=== PATIENT | female | born 1935 | race Caucasian/White ===

== ENCOUNTER 2019-08-20 17:38 | Inpatient (IN) | payer MEDICARE, OTHER ==
[2019-08-20] VITALS (7 sets, daily range): BP systolic 141–166; BP diastolic 58–90
[~2019-08-20] VITALS: Ht 149.9 cm; Wt 66.4 kg
[~2019-08-20 17:38] MED LIST: AMLO10TA8 PO; ATOR20TA58 PO; MULT1TAB52 PO; OMEP40CA45 PO; QUIN5TAB13 PO; SERT100T8 PO
[2019-08-20] MEDS ORDERED: DIPHTH,PERTUSS(ACELL),TET TOX 0.5 ML DISP.SYRIN. VAX IM ONE (18:30)
[2019-08-20] MEDS ORDERED: traMADol 50 MG TABLET PO ONE (18:30)
--- NOTE | 2019-08-20 18:39 | PHYS DOC ---
Past Medical History Past Medical History: Hypertension (SIOMARA DASILVA APRN) Past Surgical History: Hysterectomy, Tonsillectomy, Other Additional Past Surgical Histo: BOWEL SURGERY (SIOMARA DASILVA APRN) Alcohol Use: None Drug Use: None (SIOMARA DASILVA APRN) Attending Signature I have participated in the care of this patient and I have reviewed and agree with all pertinent clinical information above including history, exam, and recommendations. (MAYRA SCOTT MD) Adult General Chief Complaint Chief Complaint: MECHANICAL FALL HPI HPI Patient is a 83 year old female who presents with at 1700 lost her balance in her room falling and hitting the right back of head on the head board of her bed. Denies loc or blood thinners. Rates her head pain at a 5/10. (SIOMARA DASILVA APRN) Review of Systems Review of Systems Musculoskeletal: Right back side of head pain. Denies back pain or joint pain [] Integument: Right back of head small puncture wound. Denies rash or skin lesions [] Neurologic: headache, denies focal weakness or sensory changes [] All other systems were reviewed and found to be within normal limits, except as documented in this note. (SIOMARA DASILVA APRN) Current Medications Current Medications Current Medications Medications (Trade) Dose Ordered Sig/Terrence Start Time Stop Time Status Last Admin Dose Admin Diphtheria/ Tetanus/Acell Pertussis (Boostrix) 0.5 ml ONCE ONCE 08/20/19 18:30 08/20/19 18:31 DC 08/20/19 19:27 0.5 ML Fentanyl Citrate (Fentanyl 2ml Vial) 50 mcg PRN Q1HR PRN 08/20/19 19:45 08/21/19 19:44 08/21/19 12:44 50 MCG Labetalol HCl (Normodyne Iv Push) 10 mg 1X ONCE 08/20/19 19:45 08/20/19 19:53 DC 08/20/19 20:02 10 MG Ondansetron HCl (Zofran) 4 mg PRN Q8HRS PRN 08/20/19 19:45 08/21/19 19:44 08/21/19 12:44 4 MG Sodium Chloride 1,000 ml @ 100 mls/hr Q10H 08/20/19 19:38 08/21/19 19:37 08/21/19 05:38 100 MLS/HR Tramadol HCl (Ultram) 50 mg 1X ONCE 08/20/19 18:30 08/20/19 18:31 DC 08/20/19 19:21 50 MG (MAYRA SCOTT MD) Allergies Allergies Allergies Coded Allergies Type Severity Reaction Last Updated Verified acetaminophen Allergy Severe "EYES & NOSE SWELL UP" 02/23/16 Yes bacitracin Allergy Intermediate Redness/ rash/ hives 02/23/16 Yes neomycin Allergy Intermediate Redness/ rash/ hives 02/23/16 Yes polymyxin B Allergy Intermediate Redness/ rash/ hives 02/23/16 Yes (MAYRA SCOTT MD) Physical Exam Physical Exam Constitutional: Well developed, well nourished, no acute distress, non-toxic appearance. [] HENT: Normocephalic, atraumatic, bilateral external ears normal, oropharynx moist, no oral exudates, nose normal. Tenderness and 1+ swelling to right back of head over puncture site. [] Eyes: PERRLA, EOMI, conjunctiva normal, no discharge. [] Neck: Normal range of motion, no tenderness, supple, no stridor. [] Cardiovascular:Heart rate regular rhythm, no murmur [] Lungs & Thorax: Bilateral breath sounds clear to auscultation [] Abdomen: Bowel sounds normal, soft, no tenderness, no masses, no pulsatile masses. [] Skin: Right sided back of head puncture wound. Warm, dry, no erythema, no rash. [] Back: No tenderness, no CVA tenderness. [] Extremities: No tenderness, no cyanosis, no clubbing, ROM intact, no edema. [] Neurologic: Alert and oriented X 3, normal motor function, normal sensory function, no focal deficits noted. [] Psychologic: Affect normal, judgement normal, mood normal. [] (SIOMARA DASILVA APRN) Current Patient Data Vital Signs Vital Signs Date Time Temp Pulse Resp B/P (MAP) Pulse Ox O2 Delivery O2 Flow Rate FiO2 08/20/19 20:02 66 165/70 08/20/19 19:37 18 99 08/20/19 19:21 Room Air 08/20/19 17:38 99.0 99.0 (MAYRA SCOTT MD) Lab Values Laboratory Tests Test 08/20/19 19:15 White Blood Count 4.2 x10^3/uL (4.0-11.0) Red Blood Count 4.51 x10^6/uL (3.50-5.40) Hemoglobin 13.7 g/dL (12.0-15.5) Hematocrit 40.6 % (36.0-47.0) Mean Corpuscular Volume 90 fL (79-100) Mean Corpuscular Hemoglobin 30 pg (25-35) Mean Corpuscular Hemoglobin Concent 34 g/dL (31-37) Red Cell Distribution Width 14.1 % (11.5-14.5) Platelet Count 98 x10^3/uL (140-400) L Neutrophils (%) (Auto) 78 % (31-73) H Lymphocytes (%) (Auto) 14 % (24-48) L Monocytes (%) (Auto) 6 % (0-9) Eosinophils (%) (Auto) 1 % (0-3) Basophils (%) (Auto) 1 % (0-3) Neutrophils # (Auto) 3.3 x10^3/uL (1.8-7.7) Lymphocytes # (Auto) 0.6 x10^3/uL (1.0-4.8) L Monocytes # (Auto) 0.2 x10^3/uL (0.0-1.1) Eosinophils # (Auto) 0.1 x10^3/uL (0.0-0.7) Basophils # (Auto) 0.0 x10^3/uL (0.0-0.2) Prothrombin Time 13.0 SEC (11.7-14.0) Prothrombin Time INR 1.0 (0.8-1.1) Sodium Level 144 mmol/L (136-145) Potassium Level 4.1 mmol/L (3.5-5.1) Chloride Level 107 mmol/L (98-107) Carbon Dioxide Level 29 mmol/L (21-32) Anion Gap 8 (6-14) Blood Urea Nitrogen 20 mg/dL (7-20) Creatinine 0.9 mg/dL (0.6-1.0) Estimated GFR (Cockcroft-Gault) 59.9 BUN/Creatinine Ratio 22 (6-20) H Glucose Level 111 mg/dL (70-99) H Calcium Level 9.5 mg/dL (8.5-10.1) Total Bilirubin 0.7 mg/dL (0.2-1.0) Aspartate Amino Transferase (AST) 23 U/L (15-37) Alanine Aminotransferase (ALT) 17 U/L (14-59) Alkaline Phosphatase 92 U/L (46-116) Total Protein 6.8 g/dL (6.4-8.2) Albumin 3.8 g/dL (3.4-5.0) Albumin/Globulin Ratio 1.3 (1.0-1.7) Laboratory Tests 08/20/19 19:15 Laboratory Tests 08/20/19 19:15 (MAYRA SCOTT MD) EKG EKG [] (SIOMARA DASILVA APRN) Radiology/Procedures Radiology/Procedures [] (SIOMARA DASILVA APRN) Impressions: [facility] [address] [place] [address] IMAGING REPORT Signed PATIENT: ASPEN MONTANO IACCOUNT: [id number] : 1935 LOCATION: ER AGE: 83 SEX: F EXAM STATUS: REG ER ORD. PHYSICIAN: SIOMARA DASILVA APRN REASON: fall, laceration PROCEDURE: CT HEAD AND CERVICAL SPINE WO Exam: CT head and cervical spine INDICATION: Fall TECHNIQUE: Sequential axial images through the head and cervical spine were obtained without the administration of IV contrast. Comparisons: None FINDINGS: Head: Subdural hematoma predominantly along the falx measuring approximately 8 mm in thickness and is greatest dimension. The hematoma also extends along the falx on the left. There is no significant midline shift or sulcal effacement. No acute vascular territory infarction is identified. Holloway-white distinction is preserved. The ventricular system is within normal limits without compression hydrocephalus. The basal cisterns are well maintained. There is extracranial soft tissue contusion in the scalp overlying the right parietal region. The visualized portions of the paranasal sinuses and mastoid air cells are well-pneumatized. No acute fractures. Cervical spine: Vertebral body heights are well-maintained. There is a grade 1 anterolisthesis of C7 on T1 and T1 and T2. Fracture to the cervical spine is not identified. There is multilevel degenerative disc disease noted throughout the cervical spine. Mild bilateral facet arthropathy is also noted in the cervical spine. Visualized paraspinal soft tissues are unremarkable. IMPRESSION: 1. Subdural hematoma along the falx extending to the left tentorium which measures 8 mm at its greatest thickness. No significant mass effect. No hydrocephalus. 2. Extracranial soft tissue contusion overlying the right parietal region. 3. Negative CT C-spine for acute traumatic injury. Exposure: One or more of the following in the visualized dose reduction techniques were utilized for this examination: 1. Automated exposure control 2. Adjustment of the MA and/or KV according to patient size Use of iterative of reconstructive technique FOR INTERNAL CODING PURPOSES Critical result: Findings discussed with Dr. Scott at 08/20/2019 6:50 PM. RESULT CODE: (C) Electronically signed by: Pau Rodriguez MD (08/20/2019 6:57 PM) [facility] DICTATED and SIGNED BY: PAU RODRIGUEZ MD DATE: 08/20/19 185 (SIOMARA DASILVA APRN) Course & Med Decision Making Course & Med Decision Making Denies loc, nausea, vomiting, dizziness, abdominal pain, chest pain, soa, visual changes, numbness or tingling, back pain, neck pain. Patient moves extremities equally and without pain. Patient moves at all joints with intact ROM and no pain. No bruising, deformity, abrasions to the patients body or extremties. Patient has blood to the right back side of head. It look like there is a small puncture wound to the right back of the head but it looks to have closed up. No bleeding at this time. Tenderness over the injured area to the scalp with 1+ swelling. Alert and oriented. but states her head hurts at a 5/10. Patient speaks in full clear sentences. PERRLA. Skin pink warm and dry. Patient states she is not dizzy but feels "foggy headed". Abdomen is soft, no bruising and no ntender. Lungs are clear to auscultation. No tenderness to cervical, thoracic, lumbar spine. No pain to chest or ribs with palpation and no bruising or deformity. Patient has full ROM of her neck. Follows all commands. No hip or pelvis pain bilaterally. Pedal and radial pulses present. No extremity swelling. Ct head shows: IMPRESSION: 1. Subdural hematoma along the falx extending to the left tentorium which measures 8 mm at its greatest thickness. No significant mass effect. No hydrocephalus. 2. Extracranial soft tissue contusion overlying the right parietal region. 3. Negative CT C-spine for acute traumatic injury. 191: I have spoken to Dr Bauer and she states to make sure the blood pressure is lowered, call Dr Drew, and the patient can be admitted to ICU. Patients blood pressure is currently 162/70. 1925: I have spoken to Dr Drew [employer] and she states the patient can be admitted to the ICU and they will scan her in the morning. 1932: I have spoken to Dr Vargas for admission. (SIOMARA DASILVA APRN) Dragon Disclaimer Dragon Disclaimer This electronic medical record was generated, in whole or in part, using a voice recognition dictation system. (SIOMARA DASILVA APRN) Departure Departure Impression: Primary Impression: Subdural hematoma Disposition: 09 ADMITTED INPATIENT Admitting Physician: Pastora Vargas (SIOMARA DASILVA APRN) Condition: STABLE Referrals: PASTORA VARGAS MD (PCP) SIOMARA DASILVA APRN Aug 20, 2019 18:39 MAYRA SCOTT MD Aug 21, 2019 18:15
--- NOTE | 2019-08-20 19:00 | RAD ---
Exam: CT head and cervical spine INDICATION: Fall TECHNIQUE: Sequential axial images through the head and cervical spine were obtained without the administration of IV contrast. Comparisons: None FINDINGS: Head: Subdural hematoma predominantly along the falx measuring approximately 8 mm in thickness and is greatest dimension. The hematoma also extends along the falx on the left. There is no significant midline shift or sulcal effacement. No acute vascular territory infarction is identified. Holloway-white distinction is preserved. The ventricular system is within normal limits without compression hydrocephalus. The basal cisterns are well maintained. There is extracranial soft tissue contusion in the scalp overlying the right parietal region. The visualized portions of the paranasal sinuses and mastoid air cells are well-pneumatized. No acute fractures. Cervical spine: Vertebral body heights are well-maintained. There is a grade 1 anterolisthesis of C7 on T1 and T1 and T2. Fracture to the cervical spine is not identified. There is multilevel degenerative disc disease noted throughout the cervical spine. Mild bilateral facet arthropathy is also noted in the cervical spine. Visualized paraspinal soft tissues are unremarkable. IMPRESSION: 1. Subdural hematoma along the falx extending to the left tentorium which measures 8 mm at its greatest thickness. No significant mass effect. No hydrocephalus. 2. Extracranial soft tissue contusion overlying the right parietal region. 3. Negative CT C-spine for acute traumatic injury. Exposure: One or more of the following in the visualized dose reduction techniques were utilized for this examination: 1. Automated exposure control 2. Adjustment of the MA and/or KV according to patient size Use of iterative of reconstructive technique FOR INTERNAL CODING PURPOSES Critical result: Findings discussed with Dr. King at 08/20/2019 6:50 PM. RESULT CODE: (C) Electronically signed by: Pau Alan MD (08/20/2019 6:57 PM) [facility]
[2019-08-20 19:25] LABS: BASO % 1 % (0-3); EOS # 0.1 x10^3/uL (0.0-0.7); EOS % 1 % (0-3); HEMATOCRIT 40.6 % (36.0-47.0); HEMOGLOBIN 13.7 g/dL (12.0-15.5); LYMPH # 0.6 x10^3/uL (1.0-4.8); LYMPH % 14 % (24-48); MEAN CORPUSCULAR HEMOGLOBIN 30 pg (25-35); MEAN CORPUSCULAR HGB CONC 34 g/dL (31-37); MEAN CORPUSCULAR VOLUME 90 fL (79-100); MONO # 0.2 x10^3/uL (0.0-1.1); MONO % 6 % (0-9); NEUT # 3.3 x10^3/uL (1.8-7.7); NEUT % 78 % (31-73); PLATELET COUNT 98 x10^3/uL (140-400); RED BLOOD COUNT 4.51 x10^6/uL (3.50-5.40); RED CELL DISTRIBUTION WIDTH 14.1 % (11.5-14.5); WHITE BLOOD COUNT 4.2 x10^3/uL (4.0-11.0)
[2019-08-20 19:35] LABS: CALCIUM 9.5 mg/dL (8.5-10.1); CREATININE 0.9 mg/dL (0.6-1.0); GFR 59.9; POTASSIUM 4.1 mmol/L (3.5-5.1)
[2019-08-20 19:41] LABS: ALBUMIN 3.8 g/dL (3.4-5.0); ALBUMIN/GLOBULIN RATIO 1.3 (1.0-1.7); TOTAL BILIRUBIN 0.7 mg/dL (0.2-1.0); TOTAL PROTEIN 6.8 g/dL (6.4-8.2)
[2019-08-20] MEDS ORDERED: LABETALOL 20 MG/4 ML DISP.SYRIN. IVP ONE (19:45)
[2019-08-20] MEDS: IV NORMAL SALINE 1000ML BAG 1,000 ML IV SCH (21:26)
[2019-08-20] MEDS: amLODIPine BESYLATE 10 MG TABLET PO SCH (23:41)
[2019-08-21] VITALS (15 sets, daily range): BP systolic 106–173; BP diastolic 33–79
[2019-08-21] MEDS: IV NORMAL SALINE 1000ML BAG 1,000 ML IV SCH ×2 (05:38→15:38)
[2019-08-21] MEDS: PANTOPRAZOLE 40 MG TABLET.DR. PO SCH (08:03)
[2019-08-21] MEDS: amLODIPine BESYLATE 10 MG TABLET PO SCH (08:03)
[2019-08-21] MEDS: SERTRALINE 50 MG TABLET. PO SCH (08:03)
[2019-08-21] MEDS: LISINOPRIL 5 MG TABLET. PO SCH (08:04)
[2019-08-21] MEDS: fentaNYL PF VIAL 100 MCG/2 ML VIAL IV PRN ×2 (08:15→12:44)
[2019-08-21] MEDS: ONDANSETRON PF 4 MG/2 ML VIAL. IV PRN ×2 (08:17→12:44)
[2019-08-21] MEDS ORDERED: amLODIPine BESYLATE 10 MG TABLET PO SCH (09:00)
--- NOTE | 2019-08-21 12:54 | CONS ---
DATE OF CONSULTATION: 08/21/2019 REASON FOR CONSULTATION: Subdural hematoma. HISTORY OF PRESENT ILLNESS: The patient is a pleasant 83-year-old woman, who yesterday suffered a fall. She said she lost her balance and fell and struck the back of her head in the right side on the headboard of her bed. She said she did not lose consciousness. She was brought to the Emergency Room for further evaluation. Abnormalities were seen on her CT scan, she was admitted. Today, she reports some mild head pain, but otherwise feels well. She said she would like to go home. PAST MEDICAL HISTORY: Include hypertension. PAST SURGICAL HISTORY: Hysterectomy, tonsillectomy, and bowel surgery. PERSONAL HISTORY: She does not use alcohol or take illicit drugs or smoke. REVIEW OF SYSTEMS: Review of systems of 12 points was performed and was negative other than as outlined above. MEDICATIONS: List was also reviewed and again was negative. She is not on any blood thinners. ALLERGIES: She reports eyes and nose swelling to ACETAMINOPHEN and also redness or rash to BACITRACIN, NEOMYCIN, and POLYMYXIN B. PHYSICAL EXAMINATION: GENERAL: She is supine in bed. She is alert, pleasant, cooperative, oriented x 3 with normal recent and remote memory, normal speech. NEUROLOGIC: Her pupils are equal with normal extraocular motor function. Facial motor and facial sensory examination was normal. Her lower cranial nerves were intact. On motor testing, her strength was 5/5 in upper and lower extremities bilaterally. On sensory exam, she was intact to light touch in the upper and lower extremities with hypoactive reflexes. There was full range of motion of upper and lower extremities bilaterally. HEENT: Normocephalic. There was tenderness on the posterior aspect of the scalp on the right side. I did not see any ecchymosis or evidence of blood. NECK: Supple. LABORATORY DATA: I reviewed two CT scans of the head. The initial one done last night and one this morning. There are two abnormalities. She has what appears to be a subdural hematoma, which extends along the falx superiorly and measures about 8 mm in greatest thickness. It is without significant mass effect. There is also blood layered on the left tentorium, again without mass effect. IMPRESSION: Subdural hematoma related to trauma. RECOMMENDATIONS: At this point, she can be fed. She will be transferred upstairs. From my standpoint, she can be discharged tomorrow and we can obtain scans as an outpatient to be sure that the hematoma has resolved. Thank you for asking me to participate in her care. SADIQ SOSA MD DR: BHAVNA/agustín JOB#: [id number] / [id number]
--- NOTE | 2019-08-21 13:10 | RAD ---
CT HEAD WO CONTRAST Date: 08/21/2019 9:38 AM Clinical Indication: Subdural hematoma Comparison: 08/20/2019. Technique: 5 mm axial tomographic images were obtained of the head without contrast. These were viewed on brain and bone windows. One or more of the following dose reduction techniques were utilized: Automated exposure control (AEC), Adjustment of mA and/or kV according to patient size, Use of iterative reconstruction technique such as ASiR, CT scan done according to ALARA and image gently/image wisely Findings: Stable left acute subdural blood products along the left side of the falx and extending along the left tentorium, measuring up to 8 mm in thickness. There is no significant mass effect. No midline shift. Mild generalized cerebral and cerebellar volume loss. Mild nonspecific periventricular hypoattenuation, most commonly seen with chronic small vessel ischemic disease. Calcified atherosclerosis of the bilateral cavernous and paraclinoid internal carotid arteries and intracranial vertebral arteries. The ventricles are normal in size, shape, and morphology. The morse-white matter junction is normal. The subarachnoid cisterns are patent. The visualized paranasal sinuses are normal. The visualized portions of the orbits and globes are normal. The mastoid air cells are clear. The experimental aircraft mechanic topogram shows no lytic lesion or fracture. Impression: Stable acute left parafalcine and tentorial subdural hematoma measuring up to 8 mm in thickness. No midline shift. Electronically signed by: Navin Brennan MD (08/21/2019 1:07 PM) [facility]
--- NOTE | 2019-08-21 14:32 | HP ---
ADMIT DATE: 08/20/2019 CHIEF COMPLAINT AND HISTORY OF PRESENT ILLNESS: This 83-year-old white female, patient of Dr. Pastora Robertson's fell on the day of admission, striking the back of her head. She states she hit the headboard of her bed. She denies any loss of consciousness with the same. She takes no blood thinners at home. She had head pain and a lot of bleeding, and presented to the Emergency Room where she was found to have a subdural hematoma and admitted for the same to the ICU. PAST MEDICAL HISTORY: Remarkable for hypertension. PAST SURGICAL HISTORY: She has had a prior hysterectomy, tonsillectomy, bowel surgery. MEDICATIONS: Brought with the patient, listed on the computer and have been addressed. ALLERGIES: SHE IS ALLERGIC TO ACETAMINOPHEN, BACITRACIN, NEOMYCIN AND POLYMYXIN B. SOCIAL HISTORY: Noncontributory. FAMILY HISTORY: Noncontributory. REVIEW OF SYSTEMS: Positive for the fall. There was no loss of consciousness. She does state that she has had balance problems for some time now and has had multiple recent falls. She describes these falls are usually when she takes her eyes off of what is going on and then she winds up on the floor often falling backwards. She denies any symptoms of vertebrobasilar insufficiency associated with all this. Otherwise, review of systems is negative. PHYSICAL EXAMINATION: GENERAL: She is a well-developed, well-nourished white female, lying in bed, in no acute distress. VITAL SIGNS: Stable. She is afebrile. HEAD, EYES, EARS, NOSE AND THROAT: Remarkable for some swelling on the right posterior scalp from the fall and a small puncture. NECK: Supple without adenopathy or thyromegaly. CHEST: Clear to auscultation and percussion. HEART: Regular rate and rhythm without S3, S4 or murmur. ABDOMEN: Soft, nontender, without hepatosplenomegaly or masses. EXTREMITIES: Without cyanosis, clubbing or edema. NEUROLOGIC: She is intact. LABORATORY DATA: Initial laboratory includes a CBC that is remarkable for a platelet count of 98,000 and CMP was essentially unremarkable and an INR that is 1. Imaging of her head does reveal left parafalcine and tentorial subdural hematoma up to 8 mm in thickness without midline shift. IMPRESSION: 1. Fall with history of multiple recent falls and decreased balance with diminished proprioception on today's exam with subdural hematoma. 2. Hypertension. 3. History of prior surgeries above. PLAN: The patient has been admitted. Neurosurgery and Neurology will be asked for opinions. PT and OT will be asked to evaluate for the balance issues and the patient will be monitored, managed and treated appropriately. ARMANDO SWARTZ MD DR: MASON/agustín JOB#: [id number] / [id number] PASTORA Torres MD
[2019-08-21] MEDS ORDERED: traMADol 50 MG TABLET PO PRN (15:30)
--- NOTE | 2019-08-21 15:50 | PDOC2 ---
NEUROLOGY CONSULT Date of Admission Date of Admission DATE: 08/21/19 TIME: 15:33 Reason for Consult Reason for Consult: IMPRESSION: SDH, left tentorium and left parafalxine. Right parietal and temporal head soft tissue injury. Fall Metabolic encephalopathy. Headaches. Hypertension. Near hypertensive urgency on 08/20/19, SBP 190 mmHg. HTN. HLD. RECOMMENDATIONS/PLAN: BP control. Pain control for headaches. Avoid antiplatelet agents. Treat medical diseases. repeat HCT w/o contrast if condition worse. Discussed with her daughter and showed HCT pictures to her in ICU on 08/21/19. HISTORY OF THE PRESENT ILLNESS: This is an 83-year-old female patient with above medical diseases had falls 2 times in a month recently. She had a fall on 08/20/19 in standing position stated as lost her balance and fell and struck the back of her head in the right side on the headboard of her bed. She said she did not lose consciousness. She was brought to the ER of [facility] for further evaluation. Her HCT showed above SDH. She complained headaches in her right side as soft tissue injury. No projectile vomiting. PAST MEDICAL HISTORY: Hypertension. PAST SURGICAL HISTORY: Hysterectomy, Tonsillectomy, BOWEL SURGERY ALLERGY: Eyes and nose swelling to ACETAMINOPHEN and also redness or rash to BACITRACIN, NEOMYCIN, and POLYMYXIN B. MEDICATIONS: Refer to [facility] HISTORY: Non contributory. SOCIAL HISTORY: Lives at home. Denies current smoking, drinking, and illicit drug use. REVIEW OF SYSTEMS: Constitutional: No malnutrition, weight loss, cachexia. Head: Head injury this time. Skin: No edema, or rash. Ear: No infection, tinnitus. Eyes: No vision loss or color blindness. Nose: No bleeding or purulent discharges. Hearing: Mildly decrease. Neck: No injury. Breast: No history of cancer, masses,or discharges. Cardiac: HTN, HLD. Pulmonary: COPD. GI: No GI ulcer, GI bleeding. Urinary/genital: UTI. Endocrinologic: No cousin face, craniofacial dysmorphism, polydactyly. Skeletomuscular: Generalized weakness. Neurological: see HP. Psychiatric: Denies drug use/abuse. Otherwise, not [id number] review of systems. PHYSICAL EXAMINATION: General appearance is in acute distress. HEENT: Normocephalic and nontraumatic. Eyes, nose, ears, and throat are unre markable. Neck is supple. No lymphadenopathy. No crepitus. Cardiovascular: S1, S2, regular rate and rhythm. Pulmonary: Clear to auscultation bilaterally. Abdomen: Bowel sounds are positive. Extremities: No rash, lesions, or edema. No restriction of range of motion NEUROLOGICAL EXAMINATION: Awake. Oriented to time, place and person. PERRL. EOMI. CN: no focal findings. Muscle tone: within normal. Muscle strength: 5- DTR: 2- Plantar reflex: Flexor response bilaterally Gait: not examined in bed. Sensory exam: no abnormal findings. No cerebellar signs elicited. F-T-N test fine. Current Medications Current Medications Current Medications Diphtheria/ Tetanus/Acell Pertussis (Boostrix) 0.5 ml ONCE ONCE VAX IM Last administered on 08/20/19at 19:27; Start 08/20/19 at 18:30; Stop 08/20/19 at 18:31; Status DC Tramadol HCl (Ultram) 50 mg 1X ONCE PO Last administered on 08/20/19at 19:21; Start 08/20/19 at 18:30; Stop 08/20/19 at 18:31; Status DC Ondansetron HCl (Zofran) 4 mg PRN Q8HRS PRN IV NAUSEA/VOMITING Last administered on 08/21/19at 12:44; Start 08/20/19 at 19:45; Stop 08/21/19 at 19:44 Fentanyl Citrate (Fentanyl 2ml Vial) 50 mcg PRN Q1HR PRN IV PAIN Last administered on 08/21/19at 12:44; Start 08/20/19 at 19:45; Stop 08/21/19 at 19:44 Sodium Chloride 1,000 ml @ 100 mls/hr Q10H IV Last administered on 08/21/19at 05:38; Start 08/20/19 at 19:38; Stop 08/21/19 at 19:37 Labetalol HCl (Normodyne Iv Push) 10 mg 1X ONCE IVP Last administered on 08/20/19at 20:02; Start 08/20/19 at 19:45; Stop 08/20/19 at 19:53; Status DC Amlodipine Besylate (Norvasc) 10 mg DAILY PO ; Start 08/21/19 at 09:00; Stop 08/20/19 at 23:06; Status DC Amlodipine Besylate (Norvasc) 10 mg DAILY PO Last administered on 08/21/19at 08:03; Start 08/20/19 at 23:15 Atorvastatin Calcium (Lipitor) 20 mg HS PO ; Start 08/21/19 at 21:00 Pantoprazole Sodium (Protonix) 40 mg DAILYAC PO Last administered on 08/21/19at 08:03; Start 08/21/19 at 07:30 Lisinopril (Prinivil) 5 mg DAILY PO Last administered on 08/21/19at 08:04; Start 08/21/19 at 09:00 Sertraline HCl (Zoloft) 100 mg DAILY PO Last administered on 08/21/19at 08:03; Start 08/21/19 at 09:00 Tramadol HCl (Ultram) 50 mg PRN Q6HRS PRN PO PAIN; Start 08/21/19 at 15:30; Status UNV Active Scripts Active Reported Multivitamins (Multivitamin) 1 Each Tablet 1 Tab PO DAILY Quinapril Hcl 5 Mg Tablet 5 Mg PO DAILY Omeprazole 40 Mg Capsule.dr 40 Mg PO DAILY Sertraline Hcl 100 Mg Tablet 100 Mg PO DAILY Atorvastatin Calcium 20 Mg Tablet 20 Mg PO HS Amlodipine Besylate 10 Mg Tablet 10 Mg PO DAILY Allergies Allergies: Allergies Coded Allergies Type Severity Reaction Last Updated Verified acetaminophen Allergy Severe "EYES & NOSE SWELL UP" 02/23/16 Yes bacitracin Allergy Intermediate Redness/ rash/ hives 02/23/16 Yes neomycin Allergy Intermediate Redness/ rash/ hives 02/23/16 Yes polymyxin B Allergy Intermediate Redness/ rash/ hives 02/23/16 Yes ROS Review of System The patient denies any associated fevers, chills, headache, ear pain, rhinorrhea, sore throat, stiff neck, productive cough, chest pain, shortness of breath, back or flank pain, abdominal pain, nausea, vomiting, diarrhea, constipation, dysuria, rash, numbness, weakness, tingling, incontinence, difficulty ambulating, or diaphoresis. Physical Exam Physical Exam General: Well developed, well nourished, no acute distress, well appearing HEENT: Pupils equally round and reactive to light, EOMI, no discharge, normal conjunctiva Neck: Supple, no nuchal rigidity, no JVD, trachea midline, no tenderness Cardiac: RRR, no murmurs, no gallops, no rubs Chest/Lungs: CTAB, no wheeze, no rhonchi, no crackles Abdomen: soft, non-distended, no guarding, no peritoneal signs, non-tender Back: No tenderness Extremities: no edema, pulses intact, non-tender,capillary refill <3 sec bilateral upper and lower extremities, Neuro: Alert and oriented x 4, no focal deficits, normal speech Vitals Vitals: Vital Signs Date Time Temp Pulse Resp B/P (MAP) Pulse Ox O2 Delivery O2 Flow Rate FiO2 08/21/19 13:14 18 96 Room Air 08/21/19 12:00 63 155/64 (94) 08/21/19 08:00 98.7 98.7 Labs Labs Laboratory Tests Test 08/20/19 19:15 White Blood Count 4.2 x10^3/uL (4.0-11.0) Red Blood Count 4.51 x10^6/uL (3.50-5.40) Hemoglobin 13.7 g/dL (12.0-15.5) Hematocrit 40.6 % (36.0-47.0) Mean Corpuscular Volume 90 fL (79-100) Mean Corpuscular Hemoglobin 30 pg (25-35) Mean Corpuscular Hemoglobin Concent 34 g/dL (31-37) Red Cell Distribution Width 14.1 % (11.5-14.5) Platelet Count 98 x10^3/uL (140-400) Neutrophils (%) (Auto) 78 % (31-73) Lymphocytes (%) (Auto) 14 % (24-48) Monocytes (%) (Auto) 6 % (0-9) Eosinophils (%) (Auto) 1 % (0-3) Basophils (%) (Auto) 1 % (0-3) Neutrophils # (Auto) 3.3 x10^3/uL (1.8-7.7) Lymphocytes # (Auto) 0.6 x10^3/uL (1.0-4.8) Monocytes # (Auto) 0.2 x10^3/uL (0.0-1.1) Eosinophils # (Auto) 0.1 x10^3/uL (0.0-0.7) Basophils # (Auto) 0.0 x10^3/uL (0.0-0.2) Prothrombin Time 13.0 SEC (11.7-14.0) Prothromb Time International Ratio 1.0 (0.8-1.1) Sodium Level 144 mmol/L (136-145) Potassium Level 4.1 mmol/L (3.5-5.1) Chloride Level 107 mmol/L (98-107) Carbon Dioxide Level 29 mmol/L (21-32) Anion Gap 8 (6-14) Blood Urea Nitrogen 20 mg/dL (7-20) Creatinine 0.9 mg/dL (0.6-1.0) Estimated GFR (Cockcroft-Gault) 59.9 BUN/Creatinine Ratio 22 (6-20) Glucose Level 111 mg/dL (70-99) Calcium Level 9.5 mg/dL (8.5-10.1) Total Bilirubin 0.7 mg/dL (0.2-1.0) Aspartate Amino Transf (AST/SGOT) 23 U/L (15-37) Alanine Aminotransferase (ALT/SGPT) 17 U/L (14-59) Alkaline Phosphatase 92 U/L (46-116) Total Protein 6.8 g/dL (6.4-8.2) Albumin 3.8 g/dL (3.4-5.0) Albumin/Globulin Ratio 1.3 (1.0-1.7) Laboratory Tests Test 08/20/19 19:15 White Blood Count 4.2 x10^3/uL (4.0-11.0) Red Blood Count 4.51 x10^6/uL (3.50-5.40) Hemoglobin 13.7 g/dL (12.0-15.5) Hematocrit 40.6 % (36.0-47.0) Mean Corpuscular Volume 90 fL (79-100) Mean Corpuscular Hemoglobin 30 pg (25-35) Mean Corpuscular Hemoglobin Concent 34 g/dL (31-37) Red Cell Distribution Width 14.1 % (11.5-14.5) Platelet Count 98 x10^3/uL (140-400) Neutrophils (%) (Auto) 78 % (31-73) Lymphocytes (%) (Auto) 14 % (24-48) Monocytes (%) (Auto) 6 % (0-9) Eosinophils (%) (Auto) 1 % (0-3) Basophils (%) (Auto) 1 % (0-3) Neutrophils # (Auto) 3.3 x10^3/uL (1.8-7.7) Lymphocytes # (Auto) 0.6 x10^3/uL (1.0-4.8) Monocytes # (Auto) 0.2 x10^3/uL (0.0-1.1) Eosinophils # (Auto) 0.1 x10^3/uL (0.0-0.7) Basophils # (Auto) 0.0 x10^3/uL (0.0-0.2) Prothrombin Time 13.0 SEC (11.7-14.0) Prothromb Time International Ratio 1.0 (0.8-1.1) Sodium Level 144 mmol/L (136-145) Potassium Level 4.1 mmol/L (3.5-5.1) Chloride Level 107 mmol/L (98-107) Carbon Dioxide Level 29 mmol/L (21-32) Anion Gap 8 (6-14) Blood Urea Nitrogen 20 mg/dL (7-20) Creatinine 0.9 mg/dL (0.6-1.0) Estimated GFR (Cockcroft-Gault) 59.9 BUN/Creatinine Ratio 22 (6-20) Glucose Level 111 mg/dL (70-99) Calcium Level 9.5 mg/dL (8.5-10.1) Total Bilirubin 0.7 mg/dL (0.2-1.0) Aspartate Amino Transf (AST/SGOT) 23 U/L (15-37) Alanine Aminotransferase (ALT/SGPT) 17 U/L (14-59) Alkaline Phosphatase 92 U/L (46-116) Total Protein 6.8 g/dL (6.4-8.2) Albumin 3.8 g/dL (3.4-5.0) Albumin/Globulin Ratio 1.3 (1.0-1.7) ALICIA ODEN MD Aug 21, 2019 15:50
[2019-08-21] MEDS: ATORVASTATIN CALCIUM 20 MG TABLET PO SCH (21:57)
--- NOTE | 2019-08-22 01:30 | NUR ---
Patient's daughter, Haydee, called me at 0145 (prior to the end of Day Light Saving time change) and requested that I "keep up on" her mom's pain meds. I informed her that her mom was sleeping at the moment, but that I would check with her when she woke up again to see if she was still having pain. Haydee assured me that her mom is "not a complainer" and wouldn't ask for pain medicine. The patient then woke up at 0115 after the time change (0215 on old time) to use the bedside commode. I asked her if her head was still hurting and she said, yes, that it was starting to come back again. She only had Tramadol ordered every 6 hours PRN and it had only been about 4 hours since the last dose, so I called Dr. Robertson and received a 1 time order to administer now, and an order to change the Tramadol to every 4 hours PRN. Tramadol administered.
--- NOTE | 2019-08-22 01:36 | NUR ---
LATE ENTRY: Event occurred on 08/21/19 @ 2115. Daughter, Haydee arrived and was very upset tonight because patient did not receive dinner, in spite of me offering a sandwich and/or snacks to the patient earlier (which she had declined). Apparently, the patient had also had a poor experience here four years ago and Haydee feels like she is always having to pay us for HER to take care of her mom every time she comes here. Haydee spoke with myself and Nursing Commercial Leasing Agent, April, regarding her concerns and reports that she will be contacting the development vice president on Friday. The patient told Haydee "it's not the nurse's faults; they are doing everything they can to help me." Commercial Leasing Agent April retrieved some food from the kitchen for the patient, but Haydee had already left to get her mom some fast food. The patient picked through what she wanted to keep of the food that April brought back to her and also ate what her daughter brought her. Haydee wanted to know if she would need to be here early in the morning to make sure her mom would get breakfast, but I assured Haydee that the patient would receive a breakfast tray. I will double check to make sure the patient's diet is entered correctly in the system, and I will ask the day nurse to call the kitchen as soon as they open to verify that the patient will be receiving a breakfast tray.
[2019-08-22] MEDS ORDERED: traMADol 50 MG TABLET PO ONE (02:30)
[2019-08-22 03:07] VITALS: BP 118/49
[2019-08-22] MEDS: traMADol 50 MG TABLET PO PRN ×3 (06:23→21:39)
[2019-08-22 08:09] VITALS: BP 124/74
[2019-08-22] MEDS: amLODIPine BESYLATE 10 MG TABLET PO SCH (09:02)
[2019-08-22] MEDS: PANTOPRAZOLE 40 MG TABLET.DR. PO SCH (09:02)
[2019-08-22] MEDS: LISINOPRIL 5 MG TABLET. PO SCH (09:02)
[2019-08-22] MEDS: SERTRALINE 50 MG TABLET. PO SCH (09:08)
[2019-08-22 11:17] VITALS: BP 113/49
--- NOTE | 2019-08-22 12:00 | PDOC ---
GENERAL General: vss and afebrile. awake and alert and daughter in attendance. complains of head ache. neuro non focal, chest clear, heart regular, abdomen benign. will await final thoughts neurosurgery. best not to be taking narcotics at nh for headaches. VITAL SIGNS/I&O Vital Signs/I&O: Vital Signs Date Time Temp Pulse Resp B/P (MAP) Pulse Ox O2 Delivery O2 Flow Rate FiO2 08/22/19 11:17 98.4 69 18 113/49 (70) 93 Room Air 98.4 I & O 08/21/19 08/21/19 08/22/19 15:00 23:00 07:00 Intake Total 250 ml Output Total 0 ml Balance 0 ml 250 ml ALLERGIES Allergies: Allergies Coded Allergies Type Severity Reaction Last Updated Verified acetaminophen Allergy Severe "EYES & NOSE SWELL UP" 02/23/16 Yes bacitracin Allergy Intermediate Redness/ rash/ hives 02/23/16 Yes neomycin Allergy Intermediate Redness/ rash/ hives 02/23/16 Yes polymyxin B Allergy Intermediate Redness/ rash/ hives 02/23/16 Yes MEDS Medications: Current Medications Medications (Trade) Dose Ordered Sig/Terrence Route PRN Reason Start Time Stop Time Status Last Admin Dose Admin Atorvastatin Calcium (Lipitor) 20 mg HS PO 08/21/19 21:00 08/21/19 21:57 Tramadol HCl (Ultram) 50 mg PRN Q6HRS PRN PO PAIN 08/21/19 15:30 08/22/19 01:20 DC 08/21/19 21:57 Tramadol HCl (Ultram) 50 mg PRN Q4HRS PRN PO PAIN 08/22/19 02:00 08/22/19 10:49 Tramadol HCl (Ultram) 50 mg 1X ONCE PO 08/22/19 02:30 08/22/19 02:31 DC 08/22/19 01:25 ARMANDO SWARTZ MD Aug 22, 2019 12:00
--- NOTE | 2019-08-22 14:54 | PDOC ---
PROGRESS NOTES Assessment Assessment SDH, left tentorium and left parafalxine. Right parietal and temporal head soft tissue injury. Fall Metabolic encephalopathy. Headaches. Hypertension. Near hypertensive urgency on 08/20/19, SBP 190 mmHg. HTN. HLD. RECOMMENDATIONS/PLAN: BP control. Pain control for headaches. Avoid antiplatelet agents. Treat medical diseases. Discussed with her daughter again on 08/22/19. HISTORY OF THE PRESENT ILLNESS: This is an 83-year-old female patient with above medical diseases had falls 2 times in a month recently. She had a fall on 08/20/19 in standing position stated as lost her balance and fell and struck the back of her head in the right side on the headboard of her bed. She said she did not lose consciousness. She was brought to the ER of [facility] for further evaluation. Her HCT showed above SDH. She complained headaches in her right side as soft tissue injury. No projectile vomiting. 08/22/19: Doing fine. PAST MEDICAL HISTORY: Hypertension. PAST SURGICAL HISTORY: Hysterectomy, Tonsillectomy, BOWEL SURGERY ALLERGY: Eyes and nose swelling to ACETAMINOPHEN and also redness or rash to BACITRACIN, NEOMYCIN, and POLYMYXIN B. MEDICATIONS: Refer to [facility] FAMILY HISTORY: Non contributory. SOCIAL HISTORY: Lives at home. Denies current smoking, drinking, and illicit drug use. REVIEW OF SYSTEMS: Constitutional: No malnutrition, weight loss, cachexia. Head: Head injury this time. Skin: No edema, or rash. Ear: No infection, tinnitus. Eyes: No vision loss or color blindness. Nose: No bleeding or purulent discharges. Hearing: Mildly decrease. Neck: No injury. Breast: No history of cancer, masses,or discharges. Cardiac: HTN, HLD. Pulmonary: COPD. GI: No GI ulcer, GI bleeding. Urinary/genital: UTI. Endocrinologic: No cousin face, craniofacial dysmorphism, polydactyly. Skeletomuscular: Generalized weakness. Neurological: see HP. Psychiatric: Denies drug use/abuse. Otherwise, not [id number] review of systems. PHYSICAL EXAMINATION: General appearance is in acute distress. HEENT: Normocephalic and nontraumatic. Eyes, nose, ears, and throat are unremarkable. Neck is supple. No lymphadenopathy. No crepitus. Cardiovascular: S1, S2, regular rate and rhythm. Pulmonary: Clear to auscultation bilaterally. Abdomen: Bowel sounds are positive. Extremities: No rash, lesions, or edema. No restriction of range of motion NEUROLOGICAL EXAMINATION: Awake. Oriented to time, place and person. PERRL. EOMI. CN: no focal findings. Muscle tone: within normal. Muscle strength: 5- DTR: 2- Plantar reflex: Flexor response bilaterally Gait: not examined in bed. Sensory exam: no abnormal findings. No cerebellar signs elicited. F-T-N test fine. Objective Objective Vital Signs Date Time Temp Pulse Resp B/P (MAP) Pulse Ox O2 Delivery O2 Flow Rate FiO2 08/22/19 11:49 Room Air 08/22/19 11:17 98.4 69 18 113/49 (70) 93 98.4 Intake and Output 08/22/19 07:00 Intake Total 250 ml Output Total 0 ml Balance 250 ml Intake Oral 250 ml Output Urine Total 0 ml # Voids 3 Vitals Signs Vitals VS - Last 72 Hours, by Label Date Time Temp Pulse Resp B/P (MAP) Pulse Ox O2 Delivery O2 Flow Rate FiO2 08/22/19 11:49 Room Air 08/22/19 11:17 98.4 69 18 113/49 (70) 93 Room Air 98.4 08/22/19 10:49 Room Air 08/22/19 09:02 71 124/74 08/22/19 09:02 71 124/74 08/22/19 08:09 98.2 71 18 124/74 (91) 93 Room Air 98.2 08/22/19 07:23 Room Air 08/22/19 06:23 Room Air 08/22/19 03:07 98.0 75 20 118/49 (72) 94 Room Air 98.0 08/22/19 02:25 Room Air 08/22/19 01:25 Room Air 08/21/19 23:04 99.4 76 20 145/58 (87) 95 Room Air 99.4 08/21/19 22:57 Room Air 08/21/19 21:57 Room Air 08/21/19 20:00 Room Air 08/21/19 19:00 98.2 72 20 121/50 (73) 97 Room Air 98.2 08/21/19 16:00 98.5 68 20 106/33 (57) 94 Room Air 98.5 08/21/19 13:14 18 96 Room Air 08/21/19 12:44 18 98 Room Air 08/21/19 12:00 63 12 155/64 (94) 95 Room Air 08/21/19 10:00 65 17 142/69 (93) 96 Room Air 08/21/19 09:00 61 17 173/79 (110) 96 Room Air 08/21/19 08:45 18 98 Room Air 08/21/19 08:15 22 98 Room Air 08/21/19 08:04 63 137/85 08/21/19 08:03 63 137/85 08/21/19 08:00 98.7 68 18 134/68 (90) 99 Room Air 98.7 08/21/19 08:00 Room Air 08/21/19 07:00 72 16 158/72 (100) 99 Room Air Medication Medications Current Medications Atorvastatin Calcium (Lipitor) 20 mg HS PO Last administered on 08/21/19at 21:57; Start 08/21/19 at 21:00 Tramadol HCl (Ultram) 50 mg 1X ONCE PO Last administered on 08/22/19at 01:25; Start 08/22/19 at 02:30; Stop 08/22/19 at 02:31; Status DC Tramadol HCl (Ultram) 50 mg PRN Q4HRS PRN PO PAIN Last administered on 08/22/19at 10:49; Start 08/22/19 at 02:00 Tramadol HCl (Ultram) 50 mg PRN Q6HRS PRN PO PAIN Last administered on 08/21/19at 21:57; Start 08/21/19 at 15:30; Stop 08/22/19 at 01:20; Status DC Comment Review of Relevant I have reviewed the following items william (where applicable) has been applied. ALICIA ODEN MD Aug 22, 2019 14:54
[2019-08-22 16:21] VITALS: BP 117/50
--- NOTE | 2019-08-22 17:33 | PDOC ---
PROGRESS NOTES Subjective Subjective patient seen and examined at 1115 awake, alert c/o headache Objective Objective Vital Signs Date Time Temp Pulse Resp B/P (MAP) Pulse Ox O2 Delivery O2 Flow Rate FiO2 08/22/19 16:21 98.1 70 18 117/50 (72) 95 Room Air 98.1 Intake and Output 08/22/19 07:00 Intake Total 250 ml Output Total 0 ml Balance 250 ml Intake Oral 250 ml Output Urine Total 0 ml # Voids 3 Physical Exam General: Alert, Oriented X3, Cooperative MUSCULOSKELETAL: Other ([place]) Neuro: Other (neuro intact) Assessment Assessment Problems Medical Problems: (1) Subdural hematoma Status: Acute Plan Plan of Care could dc from NS standpoint will arrange for f/u CT head in 7 to 10 days Comment Review of Relevant I have reviewed the following items william (where applicable) has been applied. Labs Laboratory Tests Test 08/20/19 19:15 White Blood Count 4.2 x10^3/uL (4.0-11.0) Red Blood Count 4.51 x10^6/uL (3.50-5.40) Hemoglobin 13.7 g/dL (12.0-15.5) Hematocrit 40.6 % (36.0-47.0) Mean Corpuscular Volume 90 fL (79-100) Mean Corpuscular Hemoglobin 30 pg (25-35) Mean Corpuscular Hemoglobin Concent 34 g/dL (31-37) Red Cell Distribution Width 14.1 % (11.5-14.5) Platelet Count 98 x10^3/uL (140-400) Neutrophils (%) (Auto) 78 % (31-73) Lymphocytes (%) (Auto) 14 % (24-48) Monocytes (%) (Auto) 6 % (0-9) Eosinophils (%) (Auto) 1 % (0-3) Basophils (%) (Auto) 1 % (0-3) Neutrophils # (Auto) 3.3 x10^3/uL (1.8-7.7) Lymphocytes # (Auto) 0.6 x10^3/uL (1.0-4.8) Monocytes # (Auto) 0.2 x10^3/uL (0.0-1.1) Eosinophils # (Auto) 0.1 x10^3/uL (0.0-0.7) Basophils # (Auto) 0.0 x10^3/uL (0.0-0.2) Prothrombin Time 13.0 SEC (11.7-14.0) Prothromb Time International Ratio 1.0 (0.8-1.1) Sodium Level 144 mmol/L (136-145) Potassium Level 4.1 mmol/L (3.5-5.1) Chloride Level 107 mmol/L (98-107) Carbon Dioxide Level 29 mmol/L (21-32) Anion Gap 8 (6-14) Blood Urea Nitrogen 20 mg/dL (7-20) Creatinine 0.9 mg/dL (0.6-1.0) Estimated GFR (Cockcroft-Gault) 59.9 BUN/Creatinine Ratio 22 (6-20) Glucose Level 111 mg/dL (70-99) Calcium Level 9.5 mg/dL (8.5-10.1) Total Bilirubin 0.7 mg/dL (0.2-1.0) Aspartate Amino Transf (AST/SGOT) 23 U/L (15-37) Alanine Aminotransferase (ALT/SGPT) 17 U/L (14-59) Alkaline Phosphatase 92 U/L (46-116) Total Protein 6.8 g/dL (6.4-8.2) Albumin 3.8 g/dL (3.4-5.0) Albumin/Globulin Ratio 1.3 (1.0-1.7) Medications Current Medications Diphtheria/ Tetanus/Acell Pertussis (Boostrix) 0.5 ml ONCE ONCE VAX IM Last administered on 08/20/19at 19:27; Start 08/20/19 at 18:30; Stop 08/20/19 at 18:31; Status DC Tramadol HCl (Ultram) 50 mg 1X ONCE PO Last administered on 08/20/19at 19:21; Start 08/20/19 at 18:30; Stop 08/20/19 at 18:31; Status DC Ondansetron HCl (Zofran) 4 mg PRN Q8HRS PRN IV NAUSEA/VOMITING Last administered on 08/21/19at 12:44; Start 08/20/19 at 19:45; Stop 08/21/19 at 19:44; Status DC Fentanyl Citrate (Fentanyl 2ml Vial) 50 mcg PRN Q1HR PRN IV PAIN Last administered on 08/21/19 12:44; Start 08/20/19 at 19:45; Stop 08/21/19 at 19:44; Status DC Sodium Chloride 1,000 ml @ 100 mls/hr Q10H IV Last administered on 08/21/19 05:38; Start 08/20/19 at 19:38; Stop 08/21/19 at 19:37; Status DC Labetalol HCl (Normodyne Iv Push) 10 mg 1X ONCE IVP Last administered on 08/20/19 20:02; Start 08/20/19 at 19:45; Stop 08/20/19 at 19:53; Status DC Amlodipine Besylate (Norvasc) 10 mg DAILY PO ; Start 08/21/19 at 09:00; Stop 08/20/19 at 23:06; Status DC Amlodipine Besylate (Norvasc) 10 mg DAILY PO Last administered on 08/22/19 09:02; Start 08/20/19 at 23:15 Atorvastatin Calcium (Lipitor) 20 mg HS PO Last administered on 08/21/19 21:57; Start 08/21/19 at 21:00 Pantoprazole Sodium (Protonix) 40 mg DAILYAC PO Last administered on 08/22/19 09:02; Start 08/21/19 at 07:30 Lisinopril (Prinivil) 5 mg DAILY PO Last administered on 08/22/19 09:02; Start 08/21/19 at 09:00 Sertraline HCl (Zoloft) 100 mg DAILY PO Last administered on 08/22/19 09:08; Start 08/21/19 at 09:00 Tramadol HCl (Ultram) 50 mg PRN Q6HRS PRN PO PAIN Last administered on 08/21/19 21:57; Start 08/21/19 at 15:30; Stop 08/22/19 at 01:20; Status DC Tramadol HCl (Ultram) 50 mg PRN Q4HRS PRN PO PAIN Last administered on 08/22/19 10:49; Start 08/22/19 at 02:00 Tramadol HCl (Ultram) 50 mg 1X ONCE PO Last administered on 08/22/19 01:25; Start 08/22/19 at 02:30; Stop 11/3/19 at 02:31; Status DC Active Scripts Active Reported Multivitamins (Multivitamin) 1 Each Tablet 1 Tab PO DAILY Quinapril Hcl 5 Mg Tablet 5 Mg PO DAILY Omeprazole 40 Mg Capsule.dr 40 Mg PO DAILY Sertraline Hcl 100 Mg Tablet 100 Mg PO DAILY Atorvastatin Calcium 20 Mg Tablet 20 Mg PO HS Amlodipine Besylate 10 Mg Tablet 10 Mg PO DAILY Vitals/I & O Vital Sign - Last 24 Hours 08/21/19 08/21/19 08/21/19 08/21/19 19:00 20:00 21:57 22:57 Temp 98.2 98.2 Pulse 72 Resp 20 B/P (MAP) 121/50 (73) Pulse Ox 97 O2 Delivery Room Air Room Air Room Air Room Air 08/21/19 08/22/19 08/22/19 08/22/19 23:04 01:25 02:25 03:07 Temp 99.4 98.0 99.4 98.0 Pulse 76 75 Resp 20 20 B/P (MAP) 145/58 (87) 118/49 (72) Pulse Ox 95 94 O2 Delivery Room Air Room Air Room Air Room Air 08/22/19 08/22/19 08/22/19 08/22/19 06:23 07:23 08:00 08:09 Temp 98.2 98.2 Pulse 71 Resp 18 B/P (MAP) 124/74 (91) Pulse Ox 93 O2 Delivery Room Air Room Air Room Air Room Air 08/22/19 08/22/19 08/22/19 08/22/19 09:02 09:02 10:49 11:17 Temp 98.4 98.4 Pulse 71 71 69 Resp 18 B/P (MAP) 124/74 124/74 113/49 (70) Pulse Ox 93 O2 Delivery Room Air Room Air 08/22/19 08/22/19 11:49 16:21 Temp 98.1 98.1 Pulse 70 Resp 18 B/P (MAP) 117/50 (72) Pulse Ox 95 O2 Delivery Room Air Room Air Intake and Output 08/21/19 08/21/19 08/22/19 15:00 23:00 07:00 Intake Total 250 ml Output Total 0 ml Balance 0 ml 250 ml SADIQ SOSA MD Aug 22, 2019 17:33
[2019-08-22 19:00] VITALS: BP 124/58
[2019-08-22] MEDS: ATORVASTATIN CALCIUM 20 MG TABLET PO SCH (20:12)
[2019-08-22 23:04] VITALS: BP 124/80
[2019-08-23 03:17] VITALS: BP 152/55
[2019-08-23 07:00] VITALS: BP 152/55
[2019-08-23] MEDS: PANTOPRAZOLE 40 MG TABLET.DR. PO SCH (08:42)
[2019-08-23] MEDS: amLODIPine BESYLATE 10 MG TABLET PO SCH (08:42)
[2019-08-23] MEDS: SERTRALINE 50 MG TABLET. PO SCH (08:42)
[2019-08-23 08:43] VITALS: BP 152/55
[2019-08-23] MEDS: LISINOPRIL 5 MG TABLET. PO SCH (08:43)
[2019-08-23] MEDS ORDERED: FLU VAX QS 2019-20 (36MOS+)/PF 0.5 ML SYRINGE. VAX IM ONE (08:45)
[2019-08-23] MEDS: traMADol 50 MG TABLET PO PRN (08:51)
--- NOTE | 2019-08-23 08:53 | PDOC ---
Provider Note Provider Note [id number] PASTORA VARGAS MD Aug 23, 2019 08:53
--- NOTE | 2019-08-23 09:02 | DS ---
DATE OF DISCHARGE: 08/23/2019 HOSPITAL SUMMARY: An 83-year-old white female fell back and hit her head and was found to have 8 mm subdural along the left tentorial area with no mass effect, shift or hydrocephalus. The cervical spine was normal for injury. Repeat CT the next day showed a stable left-sided subdural up to 8 mm in thickness. She was monitored in the hospital, seen by Neurosurgery and felt to be clinically stable and able to be followed as an outpatient at this point. FINAL DIAGNOSES: Subdural hematoma secondary to fall and closed head injury. OPERATIONS, PROCEDURES, AND COMPLICATIONS: None. CONSULTATIONS: Cheikh Drew MD and Tj Bauer MD. DISPOSITION: Home meds remain the same. Tramadol 50 mg q.i.d. p.r.n. for pain. Office followup with Dr. Drew in [address] scan and I will see her on an as needed basis. PROGNOSIS: Good. PASTORA VARGAS MD DR: SHAHBAZ/agustín JOB#: [id number] / [id number]
--- NOTE | 2019-08-23 09:56 | NUR ---
Discharge Note: PT DISCHARGED HOME WITH SELF CARE. PT LEFT FACILITY VIA PRIVATE VEHICLE WITH DAUGHTER AT 0945. PT STABLE AND ALERT UPON DISCHARGE. PT PIV REMOVED FROM L AC WITHOUT COMPLICATIONS, BANDAGE APPLIED. PT EDUCATED ABOUT DISCHARGE INSTRUCTIONS, DISCHARGE MEDICATIONS, AND FOLLOW-UP INSTRUCTIONS, NO CONCERNS VOICED AT THIS TIME. PT LEFT WITH ALL PERSONAL BELONGINGS. ASPEN MONTANO IDelfina [facility] Discharge instructions and discharge home medications reviewed with Patient and a copy given. All questions have been answered and understanding verbalized.
== END 2019-08-23 09:59 | disposition home or self-care (01) | DRG 85 ==
LOC: ER 17:38 → 1 WEST ICU 20:04 → 5 SOUTH 08-21 16:24
PROVIDERS: ADMIT Family Medicine; ATTEND Family Medicine
DX: S06.5X0A Traumatic subdural hemorrhage without loss of consciousness, initial encounter (principal); G93.41 Metabolic encephalopathy; E78.5 Hyperlipidemia, unspecified; I10 Essential (primary) hypertension; I16.0 Hypertensive urgency; W01.0XXA Fall on same level from slipping, tripping and stumbling without subsequent striking against object, initial encounter; Z90.710 Acquired absence of both cervix and uterus; Z88.8 Allergy status to other drugs, medicaments and biological substances; Y93.89 Activity, other specified; Y92.89 Other specified places as the place of occurrence of the external cause; Y99.8 Other external cause status; Z90.49 Acquired absence of other specified parts of digestive tract; Z79.899 Other long term (current) drug therapy
CPT/HCPCS: 36415; 70450; 72125; 80053; 85025; 85610; 90471; 90715; 96374; J2405; J3010; J3490; J7030; 97535; 99285-25; G0378

== ENCOUNTER 2019-11-22 01:05 | Emergency (ER) | payer MEDICARE, OTHER ==
[~2019-11-22] VITALS: Ht 149.9 cm; Wt 66.8 kg
--- NOTE | 2019-11-22 01:20 | PHYS DOC ---
Past Medical History Past Medical History: Hypertension Past Surgical History: Hysterectomy, Tonsillectomy, Other Additional Past Surgical Histo: BOWEL SURGERY Alcohol Use: None Drug Use: None Adult General Chief Complaint Chief Complaint: MECHANICAL FALL HPI HPI Patient is a 84 year old right-handed female with history of hypertension who presents by EMS with complaint of a fall and injury to left wrist. Patient states she wanted to get out of her wheelchair and lost her balance and had a fall and landed on his left upper extremity with deformity and pain of left arm without loss of consciousness or head injury or other injuries. Patient rated her pain 9/10 and denies focal neurodeficit. EMS put a splint. Patient did not have any pain medication prior to arrival to ER. Review of Systems Review of Systems Constitutional: Denies fever or chills [] Eyes: Denies change in visual acuity, redness, or eye pain [] HENT: Denies nasal congestion or sore throat [] Respiratory: Denies cough or shortness of breath [] Cardiovascular: No additional information not addressed in HPI [] GI: Denies abdominal pain, nausea, vomiting, bloody stools or diarrhea [] : Denies dysuria or hematuria [] Musculoskeletal: Denies back pain, reports joint pain [] Integument: Denies rash or skin lesions [] Neurologic: Denies headache, focal weakness or sensory changes [] Endocrine: Denies polyuria or polydipsia [] All other systems were reviewed and found to be within normal limits, except as documented in this note. Current Medications Current Medications Current Medications Medications (Trade) Dose Ordered Sig/Terrence Start Time Stop Time Status Last Admin Dose Admin Fentanyl Citrate (Fentanyl 2ml Vial) 50 mcg 1X ONCE 11/22/19 02:15 11/22/19 02:16 DC 11/22/19 02:54 50 MCG Hydralazine HCl (Apresoline Inj) 10 mg 1X ONCE 11/22/19 03:00 11/22/19 03:01 DC Allergies Allergies Allergies Coded Allergies Type Severity Reaction Last Updated Verified acetaminophen Allergy Severe "EYES & NOSE SWELL UP" 02/23/16 Yes bacitracin Allergy Intermediate Redness/ rash/ hives 02/23/16 Yes neomycin Allergy Intermediate Redness/ rash/ hives 02/23/16 Yes polymyxin B Allergy Intermediate Redness/ rash/ hives 02/23/16 Yes Physical Exam Physical Exam Constitutional: Well developed, well nourished, moderate distress, non-toxic appearance. [] HENT: Normocephalic, atraumatic. Eyes: PERRLA, EOMI, conjunctiva normal, no discharge. [] Neck: Normal range of motion, no tenderness, supple, no stridor. [] Cardiovascular:Heart rate regular rhythm, no murmur [] Lungs & Thorax: Bilateral breath sounds clear to auscultation [] Extremities: Left upper extremity does deformity of distal forearm and painful range of motion, no neurovascular deficit . Neurologic: Alert and oriented X 3, no focal deficits noted. [] Psychologic: Affect normal, judgement normal, mood normal. [] Current Patient Data Vital Signs Vital Signs Date Time Temp Pulse Resp B/P (MAP) Pulse Ox O2 Delivery O2 Flow Rate FiO2 11/22/19 02:54 100 11/22/19 01:43 16 Room Air 11/22/19 01:07 98.2 89 174/111 (132) 98.2 EKG EKG [] Radiology/Procedures Radiology/Procedures [facility] [address] [place] [address] IMAGING REPORT Signed PATIENT: ASPEN MONTANO IACCOUNT: [id number] : 1935 LOCATION: ER AGE: 84 SEX: F EXAM STATUS: REG ER ORD. PHYSICIAN: LORENA SCOTT MD REASON: fall PROCEDURE: WRIST 2V LEFT 2 views left wrist HISTORY: Pain suspicion injury Portable Limited 2 view AP lateral views There is a transverse fracture of the distal left radius with impaction and mild posterior displacement and posterior angulation. Irregularity of the ulnar styloid could be secondary to bony injury. There is moderate degenerative changes of the lateral wrist. IMPRESSION: Acute traumatic fracture of the distal radius. Electronically signed by: Kiley Hummel III, MD (11/22/2019 1:33 AM) [id number] DICTATED and SIGNED BY: KILEY HUMMEL III, MD DATE: 11/22/19 0133 IMAGING REPORT Signed PATIENT: ASPEN MONTANO IACCOUNT: [id number] : 1935 LOCATION: ER AGE: 84 SEX: F EXAM STATUS: REG ER ORD. PHYSICIAN: LORENA SCOTT MD REASON: fall PROCEDURE: CT HEAD AND CERVICAL SPINE WO CT Head W/O Contrast: History: Status post fall Comparison: August 21, 2019 Axial images were obtained without contrast. There is marked diffuse atrophy. There is no mass effect, extraaxial fluid collections or hydrocephalus. There is no focal loss of morse-white matter distinction to suggest acute ischemia, i.e. stroke. Impression: No acute findings. Impression CT C-Spine without contrast: Clinical History: Pain status post fall Technique: Axial helical images of the cervical spine were obtained without contrast, axial coronal and sagittal reconstruction was performed. Findings: There is no loss of vertebral body stature. There is no prevertebral soft tissue swelling. There is grade 1 anterolisthesis of C7 on T1 and T1 on T2. The C1-C2 relationship is normal. The visualized osseous structures appear normal. Evaluation of the central canal is limited without contrast. There is multiple posterior disc bulges resulting in flattening of the thecal sac. At C5-C6 there is a large ossific ridge causing complete effacement of CSF around the cord. There may be mild impression on the anterior surface the cervical cord. This makes the patient susceptible possible cord contusion. There does not appear to be gross flattening of the cervical cord. There is moderate narrowing of multiple neuroforamen. Impression: No acute findings. Clinical correlation suggested. PQRS Compliance Statement: One or more of the following individualized dose reduction techniques were utilized for this examination: 1. Automated exposure control 2. Adjustment of the mA and/or kV according to patient size 3. Use of iterative reconstruction technique Electronically signed by: Kiley uHmmel III, MD (11/22/2019 2:27 AM) [id number] DICTATED and SIGNED BY: KILEY HUMMEL III, MD DATE: 11/22/19 022 Course & Med Decision Making Course & Med Decision Making Pertinent Imaging studies reviewed. (See chart for details) Evaluation of patient in ER showed 83-year-old female patient with a fall and injury to left wrist with impacted distal radial fracture without neurovascular deficit. Pain with traction was applied with good alignment. Patient had blood pressure as high as 200 that improved with Fentanyl. Patient was advised to follow-up with orthopedic physician. discharge: I've spoken with the patient and/or caregivers. I've explained the patient's condition, diagnosis and treatment plan based on information available to me at this time. I've answered the patient's and/or caregivers questions and addressed any concerns. The patient and/or caregivers have a good understanding the patient's diagnosis, condition and treatment plan as can be expected at this point. Vital signs have been stabilized. The patient's condition is stable for discharge from the emergency department. The patient will pursue further outpatient evaluation with her primary care provider or other designated consulting physician as outlined in the discharge instructions. Patient and/or caregivers are agreeable to this plan of care and follow-up instructions have been explained in detail. The patient and/or caregivers have received these instructions in written format and expressed understanding of these discharge instructions. The patient and her caregivers are aware that if any significant change in condition or worsening of symptoms should prompt him to immediately return to this of the closest emergency department. If an emergent department is not readily available I would encourage him to call 911. Tashia Disclaimer Dragon Disclaimer This electronic medical record was generated, in whole or in part, using a voice recognition dictation system. Departure Departure Impression: Primary Impression: Distal radial fracture Additional Impressions: Fall at home Hypertension, accelerated Disposition: HOME, SELF-CARE (at 0300) Condition: IMPROVED Referrals: PASTORA VARGAS MD (PCP) SUDHIR CRUZ II, MD Patient Instructions: Fall Prevention and Home Safety, How to Take Your Blood Pressure, [id number], Managing Your High Blood Pressure, Radial Fracture Additional Instructions: Apply ice on the affected area Follow-up with your primary care physician in 3-5 days Return to ER if not getting better Follow-up with orthopedic physician in 2 or 3 days Scripts Tramadol Hcl (ULTRAM) 50 Mg Tablet 50 MG PO Q6HRS PRN for PAIN, #14 TAB 0 Refills Prov: LORENA SCOTT MD 11/22/19 Problem Qualifiers Primary Impression: Distal radial fracture Encounter type: initial encounter Fracture type: closed Fracture morphology: unspecified fracture morphology Laterality: left Qualified Codes: S52.502A - Unspecified fracture of the lower end of left radius, initial encounter for closed fracture Additional Impressions: Fall at home Encounter type: subsequent encounter Qualified Codes: W19.XXXD - Unspecified fall, subsequent encounter; Y92.009 - Unspecified place in unspecified non-institutional (private) residence as the place of occurrence of the external cause LORENA SCOTT MD Nov 22, 2019 01:20
[2019-11-22] MEDS ORDERED: fentaNYL PF VIAL 100 MCG/2 ML VIAL IVP ONE ×2 (01:30→02:15)
--- NOTE | 2019-11-22 01:37 | RAD ---
2 views left wrist HISTORY: Pain suspicion injury Portable Limited 2 view AP lateral views There is a transverse fracture of the distal left radius with impaction and mild posterior displacement and posterior angulation. Irregularity of the ulnar styloid could be secondary to bony injury. There is moderate degenerative changes of the lateral wrist. IMPRESSION: Acute traumatic fracture of the distal radius. Electronically signed by: Glen Nevarez III, MD (11/22/2019 1:33 AM) [id number]
--- NOTE | 2019-11-22 02:30 | RAD ---
CT Head W/O Contrast: History: Status post fall Comparison: August 21, 2019 Axial images were obtained without contrast. There is marked diffuse atrophy. There is no mass effect, extraaxial fluid collections or hydrocephalus. There is no focal loss of morse-white matter distinction to suggest acute ischemia, i.e. stroke. Impression: No acute findings. Impression CT C-Spine without contrast: Clinical History: Pain status post fall Technique: Axial helical images of the cervical spine were obtained without contrast, axial coronal and sagittal reconstruction was performed. Findings: There is no loss of vertebral body stature. There is no prevertebral soft tissue swelling. There is grade 1 anterolisthesis of C7 on T1 and T1 on T2. The C1-C2 relationship is normal. The visualized osseous structures appear normal. Evaluation of the central canal is limited without contrast. There is multiple posterior disc bulges resulting in flattening of the thecal sac. At C5-C6 there is a large ossific ridge causing complete effacement of CSF around the cord. There may be mild impression on the anterior surface the cervical cord. This makes the patient susceptible possible cord contusion. There does not appear to be gross flattening of the cervical cord. There is moderate narrowing of multiple neuroforamen. Impression: No acute findings. Clinical correlation suggested. PQRS Compliance Statement: One or more of the following individualized dose reduction techniques were utilized for this examination: 1. Automated exposure control 2. Adjustment of the mA and/or kV according to patient size 3. Use of iterative reconstruction technique Electronically signed by: Glen Nevarez III, MD (11/22/2019 2:27 AM) [id number]
[2019-11-22] MEDS ORDERED: TRAM-48 PO ×2 (02:54→02:56)
[2019-11-22] MEDS ORDERED: hydrALAZINE 20 MG/ML VIAL. IVP ONE (03:00)
[2019-11-22 03:30] VITALS: BP 159/77
== END 2019-11-22 04:15 | disposition home or self-care (01) ==
LOC: ER 01:05
DX: S52.502A Unspecified fracture of the lower end of left radius, initial encounter for closed fracture (principal); R51 Headache; I10 Essential (primary) hypertension; Z88.1 Allergy status to other antibiotic agents; Z88.6 Allergy status to analgesic agent; W18.39XA Other fall on same level, initial encounter; Y93.89 Activity, other specified; Y92.89 Other specified places as the place of occurrence of the external cause; Y99.8 Other external cause status
CPT/HCPCS: 70450; 72125; 73100; 96374; 96376; 99284; J3010